=== PATIENT | female | born 1970 | race African-American/Black ===

== ENCOUNTER 2019-07-27 00:55 | Emergency (ER) | payer SELFPAY ==
[~2019-07-27] VITALS: Ht 170.2 cm; Wt 86.2 kg
[2019-07-27 06:43] VITALS: BP 170/97
[2019-07-27] MEDS ORDERED: cefTRIAXone SOD 1,000 MG VL IM ONE (09:00)
[2019-07-27] MEDS ORDERED: traMADol HCL 50 MG TAB PO ONE (09:00)
== END 2019-07-27 09:21 | disposition home or self-care (01) ==
LOC: ER 01:01
DX: J02.9 Acute pharyngitis, unspecified (principal); I10 Essential (primary) hypertension; Z88.6 Allergy status to analgesic agent
CPT/HCPCS: 96372; 99283; J0696